=== PATIENT | male | born 1995 | race Caucasian/White ===

== ENCOUNTER 2018-09-19 01:14 | Emergency (ER) | payer SELFPAY ==
[~2018-09-19] VITALS: Ht 167.6 cm; Wt 72.7 kg
[2018-09-19] MEDS ORDERED: HYDROCODONE/ACETAMINOPHEN 5/325MG TABLET PO ONE (02:00)
[2018-09-19 04:30] VITALS: BP 117/62
== END 2018-09-19 04:36 | disposition home or self-care (01) ==
LOC: ER 01:14
DX: S13.4XXA Sprain of ligaments of cervical spine, initial encounter (principal); J45.909 Unspecified asthma, uncomplicated; Z88.6 Allergy status to analgesic agent; V43.52XA Car driver injured in collision with other type car in traffic accident, initial encounter; Y93.89 Activity, other specified; Y92.488 Other paved roadways as the place of occurrence of the external cause
CPT/HCPCS: 73030; 99284